=== PATIENT | male | born 1960 ===

== ENCOUNTER 2018-09-28 04:00 | Emergency (ER) | payer MEDICAID ==
--- NOTE | 2018-09-28 04:45 | C.PDOC ---
History Of Present Illness 57 y/o male BIBA for evaluation of alcohol intoxication. Patient admits to drinkiing "a couple of beers" He states he feels lightheaded, otherwise has no other complaints. Time Seen by Provider: 09/28/18 04:09 Chief Complaint (Nursing): Substance Abuse History Per: Patient History/Exam Limitations: no limitations Onset/Duration Of Symptoms: Unknown Current Symptoms Are (Timing): Still Present Modifying Factor(s): Alcohol Severity: Mild Past Medical History Reviewed: Historical Data, Nursing Documentation, Vital Signs Vital Signs: Last Vital Signs Temp 97.3 F L 09/28/18 04:05 Pulse 70 09/28/18 04:05 Resp 16 09/28/18 04:05 BP 105/71 09/28/18 04:05 Pulse Ox 98 09/28/18 04:05 - Medical History PMH: HIV Family History: States: No Known Family Hx - Social History Hx Alcohol Use: Yes Hx Substance Use: No Review Of Systems Constitutional: Negative for: Fever, Chills Cardiovascular: Negative for: Chest Pain, Palpitations Respiratory: Negative for: Shortness of Breath Gastrointestinal: Negative for: Vomiting Neurological: Positive for: Dizziness. Negative for: Weakness, Numbness, Incoordination, Change in Speech, Confusion, Seizures, Headache Psych: Positive for: Other (Alcohol intoxication) Physical Exam - Physical Exam Appears: Well, Non-toxic, No Acute Distress Skin: Warm, Dry Head: Atraumatic, Normacephalic Eye(s): bilateral: Normal Inspection (no nystagmus ), PERRL, EOMI Oral Mucosa: Moist Neck: Supple Chest: Symmetrical Cardiovascular: Rhythm Regular, No Murmur Respiratory: Normal Breath Sounds, No Rales, No Rhonchi, No Wheezing Gastrointestinal/Abdominal: Normal Exam, Bowel Sounds, Soft, No Tenderness Extremity: Bilateral: Atraumatic, Normal Color And Temperature, Normal ROM Neurological/Psych: Oriented x3 (mildly intoxicated), Normal Speech, Normal Cognition ED Course And Treatment O2 Sat by Pulse Oximetry: 98 (RA) Pulse Ox Interpretation: Normal Progress Note: Accucheck 90 - WNL. Reevaluation Time: 06:30 Reassessment Condition: Improved (Patient is currently AAOx3, ambulating normally in the ED. He is clinically sober, denies any current physical complaintds. Will discharge.) Disposition - Disposition Disposition: HOME/ ROUTINE Disposition Time: 06:00 Condition: STABLE Forms: [facility] (Hebrew) - Clinical Impression Clinical Impression: Alcohol intoxication - Scribe Statement The provider has reviewed the documentation as recorded by the Adelineibdagoberto Savage Provider Attestation: All medical record entries made by the Adelineibe were at my direction and personally dictated by me. I have reviewed the chart and agree that the record accurately reflects my personal performance of the history, physical exam, medical decision making, and the department course for this patient. I have also personally directed, reviewed, and agree with the discharge instructions and disposition.
[2018-09-28 07:04] VITALS: BP 128/76; PULSE 98; RESP 20; TEMP 98
[2018-10-04 18:47] VITALS: O2SAT 98
== END 2018-09-28 06:58 | disposition home or self-care (01) ==
LOC: C.ER 04:00
DX: F10.129 Alcohol abuse with intoxication, unspecified (principal)